=== PATIENT | male | born 1990 | race Caucasian/White ===

== ENCOUNTER 2017-04-21 12:17 | Emergency (ER) | payer MEDICARE ==
[2017-04-21 13:08] LABS: BASO % 0.3 % (0.2-1.2); EOS # 0.1 10_X3_uL (0.0-0.5); EOS % 0.9 % (0.8-7.0); GRAN # 3.6 10_X3_uL (1.8-5.4); HEMATOCRIT 44.4 % (40-51); HEMOGLOBIN 15.8 g/dL (13.7-17.5); LYMPH # 2.1 10_X3_uL (1.3-3.6); LYMPH % 32.9 % (21.8-53.1); MEAN CORPUSCULAR HEMOGLOBIN 31.2 pg (27.0-33.0); MEAN CORPUSCULAR HGB CONC 35.6 g/dL (32.0-36.0); MEAN CORPUSCULAR VOLUME 87.7 fL (79-92); MONO # 0.6 10_X3_uL (0.3-0.8); MONO % 8.9 % (5.3-12.2); PLATELET COUNT 198 x10_3/uL (163-337); RED BLOOD COUNT 5.06 x10_6/uL (4.6-6.1); WHITE BLOOD COUNT 6.3 x10_3/uL (4.2-9.1)
[2017-04-21 13:29] LABS: ALBUMIN 4.6 gm/dL (3.4-5.0); ALKALINE PHOSPHATASE 64 U/L (50-136); ALT/SGPT 10 U/L (7.53-40.17); AST/SGOT 13 U/L (6.66-35.34); BILIRUBIN,TOTAL 0.58 mg/dL (0.0-1.0); CALCIUM 8.9 mg/dL (8.7-10.7); CARBON DIOXIDE 25 mmol/L (21-32); CREATINE KINASE 101 U/L (35-232); CREATININE 0.8 mg/dL (0.6-1.3); GLUCOSE,RANDOM 96 mg/dL (70-99); MAGNESIUM 2.3 mg/dL (1.8-2.4); POTASSIUM 3.7 mmol/L (3.5-5.1); SODIUM 141 mmol/L (136-145); TOTAL PROTEIN 6.8 gm/dL (6.4-8.2)
[2017-04-21 13:38] LABS: BLOOD UREA NITROGEN 7 mg/dL (7-18)
== END 2017-04-21 14:22 | disposition home or self-care (01) ==
LOC: ER 12:17
PROVIDERS: Internal Medicine
DX: R25.9 Unspecified abnormal involuntary movements (principal); F41.9 Anxiety disorder, unspecified; F17.210 Nicotine dependence, cigarettes, uncomplicated; Z79.899 Other long term (current) drug therapy
CPT/HCPCS: 36415; 70450; 80053; 82550; 82553; 83735; 85025; 93005; 99284-25